=== PATIENT | female | born 1985 | race Caucasian/White ===

== ENCOUNTER 2019-08-07 23:44 | Emergency (ER) | payer MEDICAID, OTHER ==
[~2019-08-07] VITALS: Ht 152.4 cm; Wt 89.6 kg
--- NOTE | 2019-08-08 00:01 | NUR ---
REPORT TO DEBI SOTO TO ASSUME CARE OF PT.
[2019-08-08 01:01] LABS: BASOPHILS # (AUTO) 0.03 x10^3/uL (0-0.1); BASOPHILS % (AUTO) 0 % (0-1); EOSINOPHILS # (AUTO) 0.05 x10^3/uL (0-0.4); EOSINOPHILS % (AUTO) 0 % (1-7); LYMPHOCYTES # (AUTO) 2.22 x10^3/uL (1-3.4); LYMPHOCYTES % (AUTO) 18 % (22-44); MD NO; MEAN CORPUSCULAR HEMOGLOBIN 29.8 pg (27.0-34.8); MEAN CORPUSCULAR HGB CONC 34.5 g/dL (32.4-35.8); MEAN CORPUSCULAR VOLUME 86.5 fL (80-100); MONOCYTES # (AUTO) 0.45 x10^3/uL (0.2-0.8); MONOCYTES % (AUTO) 4 % (2-9); NEUTROPHILS # (AUTO) 9.44 x10^3/uL (1.8-6.8); NEUTROPHILS % (AUTO) 77 % (42-75); PLATELET COUNT 258 x10^3/uL (130-400); RED BLOOD COUNT 4.13 x10^6/uL (3.82-5.3); RED CELL DISTRIBUTION WIDTH 13.7 % (9.6-15.2)
--- NOTE | 2019-08-08 01:07 | NUR ---
PT. REQUESTING TO SPEAK WITH DR. ARNETT ABOUT CONTRAST PRIOR TO MRI. DR. ARNETT UPDATED ON THIS AND TO SPEAK WITH PT. PRIOR TO FAXING MRI SCREENING. Addendum: 08/08/19 at 0108 by MAZIN BREAK RN:
[2019-08-08 01:09] LABS: ANION GAP 9 mmol/L (5-15); CALCIUM 8.8 mg/dL (8.5-10.1); CHLORIDE 110 mmol/L (98-107); CREATININE 0.51 mg/dL (0.55-1.02)
--- NOTE | 2019-08-08 01:16 | NUR ---
DR. ARNETT IN TO SPEAK WITH PT. ENT TO BE CONTACTED AGAIN TO DETERMINE POC.
--- NOTE | 2019-08-08 01:28 | NUR ---
MRI SCREENING FORM FAXED. PT. TO HAVE MRI WITHOUT CONTRAST.
--- NOTE | 2019-08-08 01:57 | NUR ---
REPORT BACK TO DEBI SOTO TO REASSUME CARE OF PT.
--- NOTE | 2019-08-08 04:11 | NUR ---
Patient back from MRI, significant other watching tv, offered water, patient declined further needs including warm blanket. Awaiting results. Vital signs remain stable.
[2019-08-08 04:12] VITALS: BP 134/67
== END 2019-08-08 04:41 | disposition home or self-care (01) ==
LOC: ED 08-08 04:10
DX: O99.352 Diseases of the nervous system complicating pregnancy, second trimester (principal); H53.122 Transient visual loss, left eye; Z3A.18 18 weeks gestation of pregnancy
CPT/HCPCS: 36415; 70551; 80048; 82040; 85025; 99284